=== PATIENT | female | born 1945 | race Caucasian/White ===

== ENCOUNTER 2019-01-03 06:14 | Day surgery (SDC) | payer OTHER ==
--- NOTE | 2019-01-02 23:13 | HP ---
Admitting History and Physical - Admission Chief Complaint: left knee osteoarthritis x years History of Present Illness: 73 year old female presents in regard to their leftt knee. Long-standing history of left knee lateral compartment osteoarthritis. Patient complains of pain, limited range of motion, difficulty ambulating, and difficulty with activities of daily living. Patient has failed conservative treatment options including PO medications, activity modification, injections, and exercise programs. At this point, patient like to proceed with surgical intervention, left partial knee (lateral compartment) arthroplasty MAKOplasty. History Source: Patient - Past Medical History Cardiovascular: Yes: HTN Psych: Yes: Depression Musculoskeletal: Yes: Osteoarthritis - Past Surgical History Additional Past Surgical History: See written history & physical. - Smoking History Smoking history: Former smoker Have you smoked in the past 12 months: No If you are a former smoker, when did you quit?: 34 yrs ago - Alcohol/Substance Use Hx Alcohol Use: No Home Medications - Allergies Allergies/Adverse Reactions: Allergies Allergy/AdvReac Type Severity Reaction Status Date / Time erythromycin base AdvReac Nausea Verified 12/20/18 14:21 - Home Medications Home Medications: Ambulatory Orders Aspirin [Aspirin EC] 81 mg PO DAILY 12/20/18 Escitalopram Oxalate [Lexapro -] 10 mg PO DAILY 12/20/18 Hydrochlorothiazide [Hctz -] 50 mg PO DAILY 12/20/18 Losartan Potassium [Cozaar -] 50 mg PO DAILY 12/20/18 Review of Systems - Review of Systems Musculoskeletal: reports: Crepitus (left knee), Decreased ROM (left knee), Joint Pain (left knee), Joint Swelling (left knee) Physical Examination Constitutional: Yes: Well Nourished, No Distress Eyes: Yes: Conjunctiva Clear HENT: Yes: Atraumatic Neck: Yes: Supple Cardiovascular: Yes: Regular Rate and Rhythm Respiratory: Yes: Regular, Diminished Gastrointestinal: Yes: Soft ...Rectal Exam: Yes: Deferred Musculoskeletal: Yes: Joint Stiffness (left knee), Joint Swelling (left knee) Assessment/Plan 73 year old female presents in regard to their leftt knee. Long-standing history of left knee lateral compartment osteoarthritis. Patient complains of pain, limited range of motion, difficulty ambulating, and difficulty with activities of daily living. Patient has failed conservative treatment options including PO medications, activity modification, injections, and exercise programs. At this point, patient like to proceed with surgical intervention, left partial knee (lateral compartment) arthroplasty MAKOplasty. Pros, cons, risks, benefits, and alternatives of a left partial knee (lateral compartment) arthroplasty MAKOplasty were discussed with the patient at length. Patient confirms their understanding and consents to proceed with a left partial knee ( lateral compartment) arthroplasty MAKOplasty.
[~2019-01-03 06:14] MED LIST: BUPIVICAINE 0.25%/MORPH PF/KETOROLAC - 51ML DISP.SYRINGE IA ONE; CEFAZOLIN 2 GM in DEXTROSE 5%-WATER - 50 ML IVPB ONE; CELECOXIB 200 MG CAPSULE PO ONE; GABAPENTIN 300 MG CAPSULE (FP) PO ONE; TRANEXAMIC ACID 1000 MG/10 ML VIAL IVPB ONE; TRANEXAMIC ACID 1000 MG/10 ML VIAL IVPUSH ONE; VANCOMYCIN 1,000 MG VIAL (RESTRICTED TO ID ONLY) IVPB ONE; oxyCODONE HCL 10 MG SUSTAINED ACTING TABLET PO ONE
[2019-01-03] MEDS ORDERED: PANTOPRAZOLE 40 MG TABLET (FP) PO ONE (06:15)
[2019-01-03 06:43] VITALS: BMI 33.8
[2019-01-03] MEDS ORDERED: ROPIVACAINE HCL 0.5% 30ML VIAL ONE (07:23)
[2019-01-03] MEDS ORDERED: MIDAZOLAM HCL 2 MG/2 ML SINGLE DOSE VIAL ONE (07:23)
[2019-01-03] MEDS ORDERED: VANCOMYCIN 1,000 MG VIAL (RESTRICTED TO ID ONLY) ONE (07:45)
[2019-01-03] MEDS ORDERED: ceFAZolin SODIUM 1 GM VIAL ONE ×2 (07:45→08:59)
[2019-01-03] MEDS ORDERED: BUPIVICAINE 0.25%/MORPH PF/KETOROLAC - 51ML DISP.SYRINGE IA ONE ×2 (08:05→11:22)
[2019-01-03] MEDS ORDERED: BUPIVACAINE HCL/PF 0.5% (5MG/ML) 10 ML VIAL ONE (08:45)
[2019-01-03] MEDS ORDERED: DEXAMETHASONE SOD PHOSPHATE 4 MG/1 ML VIAL ONE ×2 (08:59→11:32)
[2019-01-03] MEDS ORDERED: ONDANSETRON 4 MG/2 ML VIAL ONE ×2 (08:59→11:32)
[2019-01-03] MEDS ORDERED: SUCCINYLCHOLINE CHLORIDE 200 MG/10 ML SYRINGE ONE (09:07)
[2019-01-03] MEDS ORDERED: PROPOFOL 20 ML ONE ×2 (09:07)
[2019-01-03] MEDS ORDERED: MINERAL OIL/PETROLATUM,WHITE 3.5 GM TUBE ONE (09:16)
[2019-01-03] MEDS ORDERED: TRANEXAMIC ACID 1000 MG/10 ML VIAL ONE (11:06)
[2019-01-03] MEDS ORDERED: VANCOMYCIN 1,000 MG VIAL (RESTRICTED TO ID ONLY) IVPB ONE (11:10)
[2019-01-03] MEDS ORDERED: TRANEXAMIC ACID 1000 MG/10 ML VIAL IVPB ONE (11:23)
[2019-01-03] MEDS ORDERED: oxyCODONE HCL 5 MG TABLET PO PRN ×2 (11:28)
[2019-01-03] MEDS ORDERED: traMADol HCL 50 MG TABLET PO PRN (11:28)
[2019-01-03] MEDS ORDERED: ONDANSETRON 4 MG/2 ML VIAL IVPUSH PRN ×3 (11:28→14:14)
[2019-01-03] MEDS ORDERED: LACTATED RINGERS SOLUTION 1,000 ML IV SCH ×3 (11:30→14:15)
[2019-01-03] MEDS ORDERED: KETOROLAC TROMETHAMINE 30 MG/1 ML VIAL ONE (12:01)
[2019-01-03] MEDS ORDERED: ACETAMINOPHEN INJECTION 100 ML IVPB ONE (12:02)
--- NOTE | 2019-01-03 12:17 | OP ---
Operative Note - Note: Operative Date: 01/03/19 Pre-Operative Diagnosis: left knee OA Operation: left knee MAKOplasty LATERAL [facility] Surgeon: Wayne Cortez Liquid Loader: Radha Pope Anesthesia: Spinal Estimated Blood Loss (mls): 100
[2019-01-03] MEDS ORDERED: MAG HYDROX/AL HYDROX/SIMETH 30 ML UNIT-DOSE CUP PO PRN ×2 (12:28→14:14)
[2019-01-03] MEDS ORDERED: ACETAMINOPHEN 1000 MG/100 ML VIAL (NON FORMULARY) IVPB ONE (12:31)
[2019-01-03] MEDS ORDERED: KETOROLAC TROMETHAMINE 30 MG/1 ML VIAL IVPUSH SCH (12:45)
[2019-01-03] MEDS: traMADol HCL 50 MG TABLET PO SCH ×2 (12:45→18:22)
[2019-01-03] MEDS ORDERED: traMADol HCL 50 MG TABLET ONE (12:46)
--- NOTE | 2019-01-03 16:02 | SPEC ---
DATE OF OPERATION: 01/03/2019 PREOPERATIVE DIAGNOSIS: Left knee osteoarthritis. POSTOPERATIVE DIAGNOSIS: Left knee osteoarthritis. PROCEDURE: Left knee MAKOplasty, lateral partial knee replacement. ATTENDING SURGEON: Minor Liao MD INTERVIEWING CLERK: EFRAIN Crawford ANESTHESIA: Spinal plus sedation. ESTIMATED BLOOD LOSS: 100 mL. COMPLICATIONS: None. DISPOSITION: The patient was transferred to the PACU in stable condition. IMPLANTS USED: ANI size 3 femoral component, ANI size 2 tibial component, 9-mm polyethylene component. INDICATIONS: This is a 73-year-old female who presented to the office complaining of severe left knee pain. She was seen and examined by Dr. Liao and diagnosed with lateral compartment osteoarthritis. Patient stated that all of her pain was in the lateral compartment and that she did not have any medial or patellofemoral pain. She was initially treated nonoperatively with injections, medications, and physical therapy but continued to have severe pain and ambulatory dysfunction. She was, therefore, indicated for a lateral partial knee replacement with MAKOplasty robotic navigation. The risks, benefits, and alternatives to the procedure were explained to the patient in great detail, and she elected to proceed with surgery. DESCRIPTION OF PROCEDURE: On the day of surgery the patient was taken to the operating room and placed on the OR table. Spinal anesthesia was administered by the anesthesiologist. The patient was then positioned supine on the table and all bony prominences were padded. A nonsterile tourniquet was placed on the proximal thigh of the operative leg. The knee was then prepped and draped in the usual sterile fashion and intravenous antibiotics were given for infection prophylaxis. A surgical time out was then performed with the team, and the patient's identify, procedure, side, availability of implants and the administration of antibiotics was confirmed. With the knee flexed, an 8-cm incision was made just slightly lateral to the midline and carried down through the subcutaneous fat to the underlying retinaculum. Electrocautery was used to achieve hemostasis. A limited lateral parapatellar arthrotomy was performed. This was followed by a subperiosteal dissection of the tissue off the proximal lateral tibia. A portion of fat pad was removed from under the patellar tendon to improve visualization and a small portion of fat was excised off the distal supracondylar femur. The knee was then flexed further and the anterior horn of the lateral meniscus was released. Grade 4 changes were noted diffusely throughout the lateral compartment. The medial compartment appeared to be in good condition. Femoral and tibial checkpoints were then placed in the appropriate location using a mallet. Two parallel bicortical self-drilling pins were placed in the proximal tibia after making stab incisions and bluntly dissecting down to bone. These were positioned approximately 10 cm distal to the tibial tubercle. Two pins were then placed in the proximal femur using the same technique. These were located approximately 10 cm proximal to the superior pole of the patella. The [employer] navigation arrays were then attached to both the femoral and tibial pins and the lower extremity was then registered to the robotic navigation device using various joint movements, as well as inputting approximately 50 checkpoints. The knee was then taken through a full range of motion with a corrective varus force applied. Alignment in varus/valgus was measured at 0, 30, 60, 90 and 120 degrees of flexion to determine soft tissue balance in all of these positions. The navigation device showed appropriate tracking of the virtual components on the screen, as well as a graphic representation of the soft tissue balance. The components were repositioned virtually using the software until optimal soft tissue balance was achieved. Once this was accomplished, the final plan was saved and sent to the robot. Retractors were then placed around the distal femur. The robot was brought into the sterile field and registered with the navigation device. The robotic arm with a caio was then used to remove the appropriate amount of bone from the femur and tibia as per the saved software plan. The knee was then irrigated. Trial components were placed and the knee was taken through a full range of motion to assess soft tissue balance and alignment. The tracking and range of motion were found to be excellent and the soft tissue balance was optimal and according to plan. All trial components were then removed and an Esmarch bandage was used to exsanguinate the leg. The tourniquet was inflated in preparation for cementing. All bony surfaces were cleaned with pulsatile lavage and dried. Bone cement was then prepared on the back table and final components were cemented in place in the usual fashion. Extruded cement was removed. Once the cement had hardened, the knee was taken through a full range of motion to assess stability, balance and patellar tracking. These were found to be optimal. The trial polyethylene was exchanged for a final implant. Lateral and inferior osteophytes were debrided off the patella (patelloplasty). The navigation arrays and Homa pins were removed from the femur and tibia. All wounds were then thoroughly irrigated with normal saline. A periarticular injection was used to locally infiltrate the capsular tissues surrounding the implant and prosthesis. A 1 Vicryl and 0 V-Keyla 180 barbed sutures were used to close the arthrotomy. 2-0 Vicryl sutures were used in the subcutaneous tissues. The skin was closed using both 3-0 V-Keyla 90 suture in a running subcuticular fashion and Dermabond skin adhesive. 4-0 undyed Vicryl and Dermabond skin adhesive was used to close the stab incisions made for the navigation pins. Once this was completed, sterile Aquacel dressings were applied to each incision site. A compressive dressing was applied. The tourniquet was then deflated and the patient was awakened and went to the PACU in stable condition. MINOR LIAO M.D. [id number]
[2019-01-03] MEDS ORDERED: CEFAZOLIN 2 GM in DEXTROSE 5%-WATER - 50 ML IVPB SCH (18:00)
[2019-01-03] MEDS: ACETAMINOPHEN 325 MG TABLET (FP) PO SCH ×2 (18:21→20:04)
[2019-01-03] MEDS: DOCUSATE NA 100 MG/10 ML UNIT-DOSE CUPS PO SCH ×2 (18:23→21:31)
[2019-01-03] MEDS: KETOROLAC TROMETHAMINE 15 MG/ML VIAL IVPUSH SCH (18:23)
[2019-01-03] MEDS: CEFAZOLIN 2 GM/D5W 2 GM/50 ML ML IVPB SCH (18:23)
[2019-01-03] MEDS ORDERED: DEXAMETHASONE SOD PHOSPHATE 10 MG/1 ML VIAL IVPB ONE ×2 (20:00)
[2019-01-03] MEDS: GABAPENTIN 300 MG CAPSULE (FP) PO SCH (21:31)
[2019-01-03] MEDS: ASCORBIC ACID 500 MG TABLET (FP) PO SCH (21:31)
[2019-01-03] MEDS: CELECOXIB 200 MG CAPSULE PO SCH (21:31)
[2019-01-03] MEDS: SENNOSIDES/DOCUSATE COMBO (SENNA PLUS) TABLET (UD) PO SCH (21:32)
[2019-01-03] MEDS: oxyCODONE HCL 10 MG SUSTAINED ACTING TABLET PO SCH (21:33)
[2019-01-03] MEDS ORDERED: GABAPENTIN 300 MG CAPSULE (FP) PO SCH (22:00)
[2019-01-03] MEDS ORDERED: SENNOSIDES/DOCUSATE COMBO (SENNA PLUS) TABLET (UD) PO SCH (22:00)
[2019-01-04] MEDS: ACETAMINOPHEN 325 MG TABLET (FP) PO SCH ×4 (00:39→17:37)
[2019-01-04] MEDS: CEFAZOLIN 2 GM/D5W 2 GM/50 ML ML IVPB SCH (02:00)
[2019-01-04] MEDS: KETOROLAC TROMETHAMINE 15 MG/ML VIAL IVPUSH SCH ×2 (03:00→06:12)
[2019-01-04] MEDS: traMADol HCL 50 MG TABLET PO SCH ×4 (06:11→17:49)
[2019-01-04] MEDS: DOCUSATE NA 100 MG/10 ML UNIT-DOSE CUPS PO SCH ×2 (06:12→14:45)
[2019-01-04 07:18] LABS: HEMATOCRIT 35.8 % (32.4-45.2); HEMOGLOBIN 12.4 GM/dl (10.7-15.3); MCH 31.6 pg (25.7-33.7); MCHC 34.5 g/dl (32.0-36.0); MEAN CELL VOLUME 91.6 fl (80-96); MEAN PLT VOLUME 8.9 fl (7.5-11.1); PLATELET COUNT 265 K/MM3 (134-434); RBC 3.91 M/mm3 (3.60-5.2); RDW 12.9 % (11.6-15.6); WHITE BLOOD COUNT 14.8 K/mm3 (4.0-10.8)
[2019-01-04 07:29] LABS: CALCIUM 8.6 mg/dl (8.5-10); CREATININE 0.8 mg/dl (0.55-1.3); POTASSIUM 3.5 mmol/L (3.5-5.1)
[2019-01-04] MEDS ORDERED: ASPIRIN 325 MG TABLET PO SCH (08:00)
[2019-01-04] MEDS ORDERED: HYDROCHLOROTHIAZIDE 50 MG TABLET PO SCH (10:00)
[2019-01-04] MEDS ORDERED: PANTOPRAZOLE 40 MG TABLET (FP) PO SCH ×2 (10:00)
[2019-01-04] MEDS ORDERED: ESCITALOPRAM OXALATE 10 MG TABLET (FP) PO SCH ×2 (10:00)
[2019-01-04] MEDS ORDERED: MULTIVITAMINS (DAILY MVI) TABLET (FP) PO SCH ×2 (10:00)
[2019-01-04] MEDS ORDERED: LOSARTAN POTASSIUM 50 MG TABLET (FP) PO SCH ×2 (10:00)
[2019-01-04] MEDS ORDERED: HYDROCHLOROTHIAZIDE 25 MG TABLET (FP) PO SCH (10:00)
[2019-01-04] MEDS: GABAPENTIN 300 MG CAPSULE (FP) PO SCH (10:54)
[2019-01-04] MEDS: ASCORBIC ACID 500 MG TABLET (FP) PO SCH (10:54)
[2019-01-04] MEDS: SENNOSIDES/DOCUSATE COMBO (SENNA PLUS) TABLET (UD) PO SCH (10:54)
[2019-01-04] MEDS: CELECOXIB 200 MG CAPSULE PO SCH (10:54)
[2019-01-04] MEDS: oxyCODONE HCL 10 MG SUSTAINED ACTING TABLET PO SCH (10:55)
[2019-01-04 14:03] VITALS: BP 119/53; PULSE 61; TEMP 97.8
--- NOTE | 2019-01-04 15:33 | PN ---
Progress Note (short form) - Note Progress Note: S: Pt. sitting in a chair. No c/o. O: VAS 1-2/10 at rest. 7-8/10 with PT A/P: POD #1 s/p left lateral partial knee replacement 1. Continue pain meds as ordered 2. No anesthetic cx
--- NOTE | 2019-01-04 19:02 | PN ---
Progress Note (short form) - Note Progress Note: Pt seen and examined. Doing well. AVSS Selected Entries 01/04/19 14:02 Temperature 97.8 F Pulse Rate 61 Respiratory 18 Rate Blood Pressure 119/53 L O2 Sat by Pulse 99 Oximetry (%) Oxygen Delivery Room Air Method Laboratory Tests 01/04/19 01/04/19 07:07 07:07 WBC 14.8 H Hgb 12.4 Hct 35.8 Plt Count 265 Sodium 135 L Potassium 3.5 Chloride 99 Carbon Dioxide 25 Anion Gap 11 BUN 24.0 H Creatinine 0.8 Est GFR (CKD-EPI)AfAm 85.97 Est GFR (CKD-EPI)NonAf 74.17 Random Glucose 153 H Calcium 8.6 A/P 73yo female POD #1 s/p L TKA Doing well D/C home today
[2019-01-04] MEDS ORDERED: oxyCODONE HCL 10 MG SUSTAINED ACTING TABLET PO ONE (19:05)
[2019-01-04] MEDS ORDERED: CELECOXIB 200 MG CAPSULE PO ONE (19:05)
--- NOTE | 2019-01-04 19:05 | DS ---
Physical Examination Vital Signs: Vital Signs Temperature 97.8 F 01/04/19 14:02 Pulse Rate 61 01/04/19 14:02 Respiratory Rate 18 01/04/19 14:02 Blood Pressure 119/53 L 01/04/19 14:02 O2 Sat by Pulse Oximetry (%) 99 01/04/19 14:02 Labs: CBC, BMP 01/04/19 07:07 01/04/19 07:07 Discharge Summary Problems reviewed: Yes Reason For Visit: LEFT KNEE OSTEOARTHRITIS Current Active Problems Osteoarthritis of left knee (Acute) Procedures: Principal: left [facility] Hospital Course: Admitted for elective surgery. Procedure performed without complications. Pt received postoperative antibiotic prophylaxis and DVT ppx. Ambulated with physical therapy. Stable for discharge home with outpatient followup. Condition: Stable - Instructions Diet, Activity, Other Instructions: Dr. Cortez - Knee Replacement Instructions Keep the Aquacel dressing on until removed by Dr. Cortez in 14 days - it is antibacterial and waterproof and you can shower with it on. Email the office for a follow-up appointment with Dr. Cortez in 14 days. [phone] Take one Aspirin 325mg daily for 6 weeks to prevent blood clots in your legs. Take one Pantoprazole 40mg daily for 6 weeks to protect against heartburn and ulcers. Take Cephalexin (antibiotic) 3x/day for 10 days to help prevent skin infection. Take Celebrex 200mg daily for 30 days to reduce swelling and inflammation. Take a multivitamin, stool softener, and extra Vitamin C supplement daily. For pain: *Mild pain (1-3/10): Take 1 Tramadol tablet every 4 hours as needed. Moderate pain (4-6/10): Take 1 Tramadol tablet and 1 Percocet tablet every 4 hours as needed. Severe pain (7-10/10): Take 1 Tramadol tablet and 2 Percocet tablets every 4 hours as needed. Activity: You can put as much weight on the operative leg as you want. Right after you get home, there will be a physical therapist coming to your house to help you walk around and bend/straighten your knee. After your follow-up appointment, you will be sent for more intensive outpatient physical therapy which will include machines and equipment that the home therapist cannot bring to your house. Always use a walker or cane for balance and to prevent falls. Expect to see swelling/bruising from the operative site all the way down to your toes. Wear the compression stocking on the operative side during the day to minimize how much swelling there is in your foot/ankle. Don't wear the stocking at night. You don't have to wear a stocking on the other side. Disposition: [facility]/HOME HEALTH CARE - Home Medications Comprehensive Discharge Medication List: Ambulatory Orders Escitalopram Oxalate [Lexapro -] 10 mg PO DAILY 12/20/18 Hydrochlorothiazide [Hctz -] 50 mg PO DAILY 12/20/18 Losartan Potassium [Cozaar -] 50 mg PO DAILY 12/20/18 Ascorbic Acid [Vitamin C -] 500 mg PO BID tablet 01/04/19 Aspirin [ASA -] 325 mg PO DAILY@0800 tablet 01/04/19 Celecoxib [CeleBREX -] 200 mg PO DAILY #30 capsule 01/04/19 Cephalexin Monohydrate [Keflex -] 500 mg PO TID #30 capsule 01/04/19 Multivitamins [Multivit ([facility] Formulary)] 1 tab PO DAILY tab 01/04/19 Oxycodone HCl/Acetaminophen [Percocet 5-325 mg Tablet] 1 - 2 tab PO Q4H PRN #60 tablet MDD 10 01/04/19 Pantoprazole Sodium [Protonix -] 40 mg PO DAILY #40 tablet.ec 01/04/19 Sennosides/Docusate Sodium [Pericolace -] 2 tablet PO BID tablet 01/04/19 traMADol HCL [Ultram -] 50 mg PO Q4H PRN #42 tablet MDD 6 01/04/19
== END 2019-01-04 19:25 | disposition home health service (06) ==
LOC: FASUSAT 06:14 → FM/S 06:14 → EDSTATUS 08:00 → FM/S 12:59 → FASUSAT 01-04 19:25
PROVIDERS: ATTEND Student in an Organized Health Care Education/Training Program
PROC: 8E0YXBZ Computer Assisted Procedure of Lower Extremity (ICD-10-PCS; 2019-01-03)
PROC: 8E0Y0CZ Robotic Assisted Procedure of Lower Extremity, Open Approach (ICD-10-PCS; 2019-01-03)
PROC: 0SRD0M9 Replacement of Left Knee Joint with Lateral Unicondylar Synthetic Substitute, Cemented, Open Approach (ICD-10-PCS; principal; 2019-01-03 09:23)
DX: M17.12 Unilateral primary osteoarthritis, left knee (principal)
CPT/HCPCS: 20985; 27446; C1776; S2900; 36415; 73560-TC-LT-FY; 80048; 85027; 94760; 97116-GP; 97163-GP; J0131; J1100